=== PATIENT | male | born 2005 | race Caucasian/White ===

== ENCOUNTER 2025-05-12 03:12 | Emergency (ER) | payer SELFPAY ==
[2025-05-12 03:21] VITALS: BP 127/87; BMI 16.9
[2025-05-12 04:54] VITALS: BP 131/100
[2025-05-12 05:14] LABS: Hematocrit 48.1 % (39.0-52.0); Hemoglobin 16.9 g/dL (13.0-18.0); Mean Corp Hgb Conc. 35.1 g/dL (33.0-37.0); Mean Corpuscular Volume 83.4 fL (80.0-94.0); Nucleated Red Blood Cells % 0 % (-); Platelet Count 353 10^3/uL (130-400); Red Cell Dist. Width 12.0 % (11.5-14.5)
[2025-05-12 05:32] LABS: ALT (SGPT) 19 U/L (0-50); AST (SGOT) 31 U/L (17-59); Acetaminophen < 10 ug/ml (10-30); Albumin 5.3 g/dl (3.5-5.0); Alkaline Phosphatase 93 U/L (38-126); Blood Urea Nitrogen 29 mg/dl (9-20); Calcium 9.8 mg/dl (8.4-10.2); Carbon Dioxide 27 mmol/L (22-30); Chloride 104 mmol/L (98-107); Estimated Creatinine Clearance 96 ml/min; Glucose 68 mg/dl (70-99); Potassium 3.9 mmol/L (3.5-5.1); Sodium 140 mmol/L (135-145); Total Protein 7.8 g/dl (6.3-8.2); eGFR > 60.00
--- NOTE | 2025-05-12 05:53 | ED.GENMED ---
History of Present Illness
General
Chief Complaint: Psychiatric Problem
Time Seen by Provider: 05/12/25 03:14
Course
Orders/Labs/Results
Orders:
Orders
05/12/25 03:22
Urine Drug Abuse Screen Urgent
Date Specimen was Collected: 05/12/25
Time Specimen was Collected: 04:42
05/12/25 03:41
Crisis Consult Urgent
Reason for Consult: Crisis
05/12/25 04:51
Acetaminophen Urgent
Alcohol Urgent
Complete Blood Count/With Diff Urgent
Comprehensive Metabolic Panel Urgent
Salicylate Urgent
05/12/25 05:15
Consult Notification Routine
Specialty to Notify: Psychiatry
PSYCHIATRY CONSULT Urgent
Consulting Provider: Manjinder Solis
Was physician already notified: No
Reason for consult: paranoia
Abnormal Lab Results
05/12/25
04:51
WBC 13.6 H 10^3/uL
(4.8-10.8)
Abs Immat Gran (auto) 0.1 H 10^3/uL
(0-0.05)
Absolute Neuts (auto) 9.8 H 10^3/uL
(1.4-6.5)
Absolute Monos (auto) 1.3 H 10^3/uL
(0.1-0.6)
Lymphocytes % 16.8 L %
(20.5-51.1)
Monocytes % 9.7 H %
(1.7-9.3)
BUN 29 H mg/dl
(9-20)
Glucose 68 L mg/dl
(70-99)
Albumin 5.3 H g/dl
(3.5-5.0)
Acetaminophen < 10 L ug/ml
(10-30)
05/12/25 04:51
05/12/25 04:51
Vital Signs
Initial and Last Documented VS:
Initial Vital Signs
Temp Pulse Resp BP Pulse Ox
99 F 117 17 127/87 96
05/12/25 03:21 05/12/25 03:21 05/12/25 03:21 05/12/25 03:21 05/12/25 03:21
Last Documented Vital Signs
Temp Pulse Resp BP Pulse Ox
99 F 101 18 131/100 97
05/12/25 03:21 05/12/25 04:54 05/12/25 04:54 05/12/25 04:54 05/12/25 04:54
*Pulse Oximetry
SaO2: 97
Oxygen Mode of Delivery: Room air
ED Attending Note
-
Portions of this chart may have been created with voice recognition software.� Occasional wrong word or��sound alike� substitutions may have occurred due to the inherent limitations of voice recognition software.
Discharge Plan
Departure
Patient Disposition: Psych Facility
Date of Disposition: 05/12/25
Time of Disposition: 05:53
Discharge Problem:
Paranoia
Instructions: Schizophrenia (DC)
Interventions
Interventions:
*Risk Screen - Suicide Last Done: 05/12/25 03:21
*General Assessment Last Done: 05/12/25 03:21
*Neglect/Abuse Screening Last Done: 05/12/25 03:21
*ED- Fall Risk Assessment Last Done: 05/12/25 03:21
*ED COVID-19 Vaccine History Last Done: 05/12/25 03:21
ED-Psychological Assessment Last Done: 05/12/25 03:21
Discharge Date and Time
Print Language: CHINESE
[2025-05-12 06:46] LABS: Salicylate < 1.0 mg/dl (2.0-20.0)
[2025-05-12 07:28] VITALS: BP 111/68
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
[2025-05-12 15:50] VITALS: BP 116/77
[2025-05-12 19:09] LABS: Glucose - Point of Care 83 mg/dl (70-99)
[2025-05-12 19:16] VITALS: BP 110/70
[2025-05-13 09:09] VITALS: BP 102/69
[2025-05-13 21:22] VITALS: BP 109/68
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
[2025-05-14 18:36] VITALS: BP 104/65
--- NOTE | 2025-05-14 23:00 | EDRN ---
Report received, patient resting comfortably
--- NOTE | 2025-05-15 01:09 | EDRN ---
Patient sitting up when observed, calm, 1:[address]
[2025-05-15 08:53] VITALS: BP 121/76
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
[2025-05-15] MEDS: RISPERDAL 0.5 MG PO (09:51)
--- NOTE | 2025-05-15 11:00 | EDRN ---
Assumed care of pt at this time. Crisis called for update on plan for pt and was informed no plan r/t pt acuity and lack of insurance.
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
[2025-05-15 13:00] VITALS: BP 113/84
--- NOTE | 2025-05-15 13:24 | EDRN ---
Pt's family came to visit pt (mother and brother) w/ clothes, raspberries and toothbrush and toothpaste. pt said he did not wish to see them. They left the clothes w/ security and told no updates on pt at this time. Pt is awaiting placement. Pt was
given a note that brother wanted pt to read. Pt accepted the note.
--- NOTE | 2025-05-15 15:17 | EDRN ---
"Report called to [facility] as requested by them. This RN spoke to Jus Adorno RN who will care for pt. She requested original copy of the 201 which this RN told crisis. Crisis is awaiting Dr. Anderson to sign the 201 and then will arrange transport to "[facility]."
--- NOTE | 2025-05-15 15:34 | EDRN ---
Pt updated that [facility] has a policy of new visitors for their crisis patients for 12 hours after admission. Pt replied that he does not wish to see his family until his treatment is completed. Pt continuously scratching his scalp.
Security worried about lice. Pt is malodorous as well. Dr. Jones informed of security's concerns about pt may be infested w/ lice and said he will check pt.
--- NOTE | 2025-05-15 18:38 | EDRN ---
Dr. Jones examined pt's scalp at this time and no lice noted. pt though is malodorous and needs bathing but no area available at this time.
--- NOTE | 2025-05-15 18:41 | EDRN ---
Per crisis pt is to be transferred to [facility] at 20:30 [facility].
--- NOTE | 2025-05-15 18:55 | ED.CRISIS ---
ED Crisis Note
ED Crisis Note
Subjective:
19-year-old male under 302 awaiting placement by psychiatry for psychosis
Objective:
Patient in no acute distress resting comfortably eating in room poorly kept. No insects or lesions seen on patient's scalp no respiratory distress
Assessment/Plan:
19-year-old male with psychosis on respite all awaiting placement by crisis.
== END 2025-05-15 20:35 ==
LOC: EMR 03:12
PROVIDERS: CONSULT PHYSICIAN Psychiatry & Neurology Psychiatry; EMERGENCY PHYSICIAN Student in an Organized Health Care Education/Training Program
DX: F22 Delusional disorders (principal); Z59.71 Insufficient health insurance coverage; Z79.899 Other long term (current) drug therapy
CPT/HCPCS: 80053; 80143; 80179; 80306; 82077; 82962; 85025; 93005; 99285